=== PATIENT | male | born 1965 | race Caucasian/White ===

== ENCOUNTER 2019-08-04 15:48 | Emergency (ER) | payer SELFPAY ==
[~2019-08-04] VITALS: Ht 177.8 cm; Wt 102.1 kg
[~2019-08-04 15:48] MED LIST: SULTRIDS PO
[2019-08-04] MEDS ORDERED: CEPH500 PO (17:43)
== END 2019-08-04 18:37 | disposition home or self-care (01) ==
LOC: ER 15:48
DX: S60.221A Contusion of right hand, initial encounter (principal); Z23 Encounter for immunization; Z88.0 Allergy status to penicillin; W19.XXXA Unspecified fall, initial encounter
CPT/HCPCS: 73130; 90471; 90714; 99282-25; A9270-GY

== ENCOUNTER 2023-01-04 08:05 | Day surgery (SDC) | payer BC ==
[~2023-01-04] VITALS: Ht 179 cm; Wt 103.1 kg
[2023-01-04] VITALS (12 sets, daily range): BP systolic 92–130; BP diastolic 63–94
[~2023-01-04 08:05] MED LIST changes: +BIKTARVY 50-201 EAC1 PO; +CEPH500 PO
--- NOTE | 2023-01-04 09:09 | NUR ---
Ambulatory in Day Surgery. History, Chart, Medications and Allergies reviewed before start of procedure. Patient states colon prep results clear/yellow. Patient confirms NPO status and agrees with scheduled surgery. Patient States Post-Procedure ride home has been arranged, [employer]. pt confirms it is a medical transport taxi.
--- NOTE | 2023-01-04 09:55 | NUR ---
01/04/23 0955 Sharon Abreu HISTORY, CHART, MEDICATIONS AND ALLERGIES REVIEWED BEFORE START OF PROCEDURE. PATIENT CONFIRMS NPO STATUS AND AGREES WITH SCHEDULED PROCEDURE. 3-LEAD EKG REVIEWED WITH PHYSICIAN PRIOR TO START OF PROCEDURE. MONITOR INTACT WITH CONTINUOUS PULSE OXIMETRY,CAPNOGRAPHY, 3-LEAD EKG, INTERMITTENT BP. SUPPLEMENTAL O2 TO BE TITRATED THROUGHOUT PROCEDURE TO MAINTAIN O2 SATURATION ABOVE 90%. PATIENT DETERMINED TO BE ASA APPROPRIATE FOR PROPOFOL SEDATION PRIOR TO START OF PROCEDURE BY .
--- NOTE | 2023-01-04 10:36 | NUR ---
Discharge instructions reviewed with patient. Patient verbalizes understanding. Copy given to patient to take home. Patient States Post-Procedure ride home has been arranged. Discharged via wheelchair to private car for ride home.
== END 2023-01-04 10:37 | disposition home or self-care (01) ==
LOC: ORSCMMR 08:05 → ORD 09:00 → ORSCMMR 09:00
PROVIDERS: Internal Medicine Gastroenterology
PROC: 0DJD8ZZ Inspection of Lower Intestinal Tract, Via Natural or Artificial Opening Endoscopic (ICD-10-PCS; principal; 2023-01-04 09:00)
DX: Z12.11 Encounter for screening for malignant neoplasm of colon (principal); B20 Human immunodeficiency virus [HIV] disease; Z79.899 Other long term (current) drug therapy
CPT/HCPCS: J2704; J7120

== ENCOUNTER 2024-04-13 21:54 | Emergency (ER) | payer BC ==
[~2024-04-13] VITALS: Ht 177.8 cm; Wt 99.8 kg
[2024-04-13 22:16] VITALS: BP 129/82
[2024-04-13 23:05] LABS: Influenza A, PCR NEGATIVE (NEGATIVE); Influenza B, PCR NEGATIVE (NEGATIVE); Resp Syncytial Virus, PCR NEGATIVE (NEGATIVE); SARS-Cov-2 (COVID-19) PCR, MMC NEGATIVE (NEGATIVE)
[2024-04-14] MEDS ORDERED: OCUFLOX510 BOTHEYES (00:19)
[2024-04-14] MEDS ORDERED: AZIT250 PO (00:19)
[2024-04-14] MEDS ORDERED: Ofloxacin 0.3% Opth Soln 5 ML BOTHEYES ONE (00:20)
[2024-04-14] MEDS ORDERED: Azithromycin 250 MG Tab PO ONE (00:20)
== END 2024-04-14 00:34 | disposition home or self-care (01) ==
LOC: ER 21:54
PROVIDERS: Student in an Organized Health Care Education/Training Program
DX: H10.9 Unspecified conjunctivitis (principal); Z79.899 Other long term (current) drug therapy; Z88.0 Allergy status to penicillin
CPT/HCPCS: 0241U; 99283; A9270